=== PATIENT | male | born 1985 | race Hispanic/Latino ===

== ENCOUNTER 2020-10-04 22:59 | Emergency (ER) | payer SELFPAY ==
[~2020-10-04] VITALS: Ht 170.2 cm; Wt 108.0 kg
[2020-10-04] MEDS ORDERED: MORPHINE SULFATE 2 MG/ML SYR 1ML IV STA (23:36)
[2020-10-04] MEDS ORDERED: ONDANSETRON HCL INJ 2MG/ML 2ML 2 MG/ML VIAL IV STA (23:36)
[2020-10-04] MEDS ORDERED: SODIUM CHLORIDE 0.9% 1000ML 1,000 ML IV SCH (23:45)
[2020-10-04] MEDS ORDERED: SODIUM CHLORIDE 0.9% 50ML 50 ML ONE (23:52)
[2020-10-04] MEDS ORDERED: IOPAMIDOL 370 MG/ML 200 ML INFUS..BTL INJ ONE (23:52)
[2020-10-05] MEDS ORDERED: MORPHINE SULFATE INJ 4 MG/ML INJ 1ML ONE ×2 (00:03→01:44)
[2020-10-05] MEDS ORDERED: METRONIDAZOLE 500MG/NS 100ML 100 ML IV ONE (00:37)
[2020-10-05] MEDS ORDERED: LEVOFLOXACIN 750MG/D5W 150ML 150 ML IV ONE (00:37)
[2020-10-05] MEDS ORDERED: LEVOFLOXACIN 750MG/D5W 150ML 150 ML IV SCH (00:45)
[2020-10-05] MEDS ORDERED: MORPHINE SULFATE 5 MG/ML VIAL IV ONE (02:00)
[2020-10-05 02:33] VITALS: BP 114/63
[2020-10-05] MEDS ORDERED: METRONIDAZOLE 500MG/NS 100ML 100 ML IV SCH (06:00)
== END 2020-10-05 03:17 | disposition other institution (70) ==
LOC: FSED 23:15
DX: R10.33 Periumbilical pain (principal); R19.00 Intra-abdominal and pelvic swelling, mass and lump, unspecified site; R91.8 Other nonspecific abnormal finding of lung field; R11.2 Nausea with vomiting, unspecified; D72.829 Elevated white blood cell count, unspecified
CPT/HCPCS: 74177; 80048; 80076; 81003; 85025; 96374; 96376; 99284; J2270 ×2; J2405; J7030; Q9967